=== PATIENT | female | born 1995 | race Caucasian/White ===

== ENCOUNTER 2017-12-20 20:48 | Emergency (ER) | payer OTHER ==
[2017-12-20 21:05] VITALS: BP 126/75; PULSE 83; RESP 18; TEMP 98.7; O2SAT 100
[2017-12-20] MEDS ORDERED: Dextrose 5%/Lactated Ringer's 1,000 ML IV SCH (21:15)
--- NOTE | 2017-12-20 21:52 | ED PDOC ---
Syncope/Near Syncope/Dizziness Time Seen by Provider: 12/20/17 21:06 Chief Complaint (Nursing): Dizziness/Lightheaded Chief Complaint (Provider): Dizziness/Lightheaded History Per: Patient History/Exam Limitations: no limitations Onset/Duration Of Symptoms: Intermittent Episodes Additional Complaint(s): 22 year old female, approximately 20 weeks , presents to the ER complaining that she feels dizzy/lightheaded associated with palpitations intermittently. Patient reports episodes have been happening with increased frequency during her . States it worsens after meals. No vomiting, syncope, abdominal pain, vaginal bleeding or discharge. Patient states everything else regarding her has been normal. PMD: Dr. Franky Palencia Past Medical History Reviewed: Historical Data, Nursing Documentation, Vital Signs Vital Signs: Last Vital Signs Temp 98.7 F 12/20/17 21:01 Pulse 83 12/20/17 21:01 Resp 18 12/20/17 21:01 BP 126/75 12/20/17 21:01 Pulse Ox 100 12/20/17 21:01 - Family History Family History: States: Unknown Family Hx - Allergies Allergies/Adverse Reactions: Allergies Allergy/AdvReac Type Severity Reaction Status Date / Time No Known Allergies Allergy Verified 12/20/17 21:04 Review of Systems ROS Statement: Except As Marked, All Systems Reviewed And Found Negative Cardiovascular: Positive for: Palpitations, Light Headedness Gastrointestinal: Negative for: Vomiting, Abdominal Pain Genitourinary Female: Negative for: Vaginal Discharge, Vaginal Bleeding Neurological: Positive for: Dizziness. Negative for: Other (syncope) Physical Exam - Reviewed Nursing Documentation Reviewed: Yes Vital Signs Reviewed: Yes - Physical Exam Appears: Positive for: Non-toxic, No Acute Distress Head Exam: Positive for: ATRAUMATIC, NORMOCEPHALIC Skin: Positive for: Normal Color, Warm, Dry Eye Exam: Positive for: EOMI, Normal appearance, PERRL Neck: Positive for: Normal, Painless ROM, Supple Cardiovascular/Chest: Positive for: Regular Rate, Rhythm. Negative for: Murmur Respiratory: Positive for: Normal Breath Sounds. Negative for: Accessory Muscle Use, Respiratory Distress Gastrointestinal/Abdominal: Positive for: Soft. Negative for: Tenderness Pelvic Exam: Positive for: Other (Gravid uterus) Extremity: Positive for: Normal ROM. Negative for: Deformity Neurologic/Psych: Positive for: Alert, jig worker II-XII (intact), Oriented (x 3), Cerebellar Tests (normal), Gait (steady). Negative for: Motor/Sensory Deficits - Laboratory Results Result Diagrams: 12/20/17 21:48 12/20/17 21:48 - ECG O2 Sat by Pulse Oximetry: 100 (RA) Pulse Ox Interpretation: Normal Medical Decision Making Medical Decision Making: Impression: Dehydration in Time: 21:11 Initial Plan: --EKG --BMP --CBC --Accucheck --Dextrose 5% IV 1000 ml at 500 mls/hr --Reevaluation Time: 2350 Patient reports feeling much better. Labs reviewed and show no clinically significant abnormalities. Patient stable for discharge home. Scribe Attestation: Documented by Vandana Carrillo, acting as a scribe for Jose Conde MD Provider Scribe Attestation: All medical record entries made by the Scribe were at my direction and personally dictated by me. I have reviewed the chart and agree that the record accurately reflects my personal performance of the history, physical exam, medical decision making, and the department course for this patient. I have also personally directed, reviewed, and agree with the discharge instructions and disposition Disposition - Clinical Impression Clinical Impression: Dizziness - Disposition [facility]] Franky Palencia MD [Family Provider] - Disposition Time: 23:50 Condition: IMPROVED Instructions: Dizziness (ED) Forms: [employer] (Faroese)
[2017-12-20 21:57] LABS: HEMOGLOBIN 10.6 g/dL (12.0-16.0); MEAN CELL VOLUME 85.2 fl (81.0-99.0); MEAN CORPUSCULAR HEMOGLOBIN 27.9 pg (27.0-31.0); MEAN CORPUSCULAR HGB CONC 32.7 g/dL (33.0-37.0); RBC 3.8 Mil/uL (3.80-5.20); RED CELL DISTRIBUTION WIDTH 14.5 % (11.5-14.5); WHITE BLOOD COUNT 11.4 K/uL (4.8-10.8)
[2017-12-20 23:43] LABS: BLOOD UREA NITROGEN 6 mg/dl (7-17); CALCIUM 9.3 mg/dL (8.4-10.2); GFR AFRICAN-AMERICAN > 60; GFR NON-AFRICAN AMERICAN > 60
--- NOTE | 2017-12-21 17:18 | CARD ---
APPROVED REPORT EKG Measurement Heart [id number] <Conclusion> Normal sinus rhythm Normal ECG
== END 2017-12-21 00:30 | disposition home or self-care (01) ==
LOC: H.ER 20:48
DX: R42 Dizziness and giddiness (principal); R00.2 Palpitations; E86.0 Dehydration; Z33.1 Pregnant state, incidental
CPT/HCPCS: 80048; 85027; 93005; 99284; J7120

== ENCOUNTER 2018-05-10 12:18 | Inpatient (IN) | payer OTHER ==
[2018-05-10 12:34] VITALS: BMI 46.0
--- NOTE | 2018-05-10 13:55 | OBHP ---
Datetime: 05/10/2018 12:45 IP Adm Impression: Term, intrauterine ; No Active Labor; Ruptured Membranes IP Admit Plan: Admit to unit; Initiate labor protocol Admit Comment, IP Provider: 22 y/o F at 40.4 weeks GA with ALISHA 05/06/18 by 1st trim US, complains of LOF that occured at 2 am and 1 hour ago. Pt described feeling a gush of fluid between legs, clear in color and significant amount. CTX's also began this morning, 5/10 intensity and now occuring ever y 5 minutes. No vaginal bleeding. FM present. All systems reviewed and negative except as above. NKDA PN Care: w/ Dr medina at [facility]. PN Labs: GBS neg, HIV neg, Rubella immune, blood group O pos, Antibody neg, HBsAg neg. OBHx: , TOP x2. PMHx: asthma PSHx: denied SHx: No tobacoo, EtOH or rec drugs. A/P: 22 y/o F with IUP at 40.4 weeks GA, with SROM, in labor. -Admit to L and D unit. -Initiate Labor protocol. Case discussed with Dr Lucero, OB hospitalist salesperson art objects. OB Hospitalist on-call: With PGY1, I saw and exained this patient. chart rev'd (obese/as thma) Early labor, pain management, augmentation methods/meds, delivety and postpartumc are discussed ...will admit and observe labor progress. She states baby was 7lb 2w ago by sono. EDISONolesharyn PGY-1. Pelvic Type - PN: Adequate Extremities - PN: Normal Lungs - PN: Normal Heart - PN: Normal Thyroid - PN: Normal HEENT - PN: Normal General - PN: Normal Presentation-Admit: Vertex FHR - Baseline A Provider: 140 Membranes, Provider: Ruptured Contraction Comments Provider: occ Pool Provider: Positive IP Hx Assessment: The History has been Reviewed and is Current EGA AdmitDate IP: 40.4 Vital Signs Provider: Reviewed IP Chief Complaint: Uterine contractions; Suspected ruptured membranes NICHD Variability Prov Fetus A: Moderate 6-25bpm NICHD Accel Fetus A IP Provider: 15X15 FHR Category Provider Fetus A: Category I Dilatation, Provider: 3 Effacement, Provider: 50 Station, Provider: high Genitourinary Exam: Normal
[2018-05-10 14:13] LABS: BASO % 0.2 % (0.0-2.0); EOS # 0.1 K/uL (0.0-0.7); EOS % 0.7 % (0.0-4.0); HEMOGLOBIN 10.5 g/dL (12.0-16.0); LYMPH # 1.3 K/uL (1.0-4.3); LYMPH % 10.4 % (20.0-40.0); MEAN CELL VOLUME 77.7 fl (81.0-99.0); MEAN CORPUSCULAR HEMOGLOBIN 25.2 pg (27.0-31.0); MEAN CORPUSCULAR HGB CONC 32.4 g/dL (33.0-37.0); MEAN PLATELET VOLUME 8.5 fl (7.2-11.7); MONO # 0.7 K/uL (0.0-0.8); MONO % 5.4 % (0.0-10.0); NEUT # 10.8 K/uL (1.8-7.0); NEUT % 83.3 % (50.0-75.0); NRBC % 0.1 % (0.0-0.0); RBC 4.16 Mil/uL (3.80-5.20); RED CELL DISTRIBUTION WIDTH 18.2 % (11.5-14.5); WHITE BLOOD COUNT 12.9 K/uL (4.8-10.8)
[2018-05-10] MEDS ORDERED: Oxytocin 30 units/LR 500ML 30 U/500 ML BAG IV ONE (21:53)
--- NOTE | 2018-05-11 01:41 | OBPN ---
Datetime: 05/11/2018 01:30 IP Progress Impression: Reassuring heart rate IP Informed Consent Obtain: Vaginal Delivery; Risks, Benefits and Alternatives Discussed IP Progress Plan: Augmentation; Anticipate Vaginal Delivery Membranes, Provider: Ruptured Contraction Comments Provider: occ FHR - Baseline A Provider: 140 Presentation-Admit: Vertex IP Progress Note Comment: She still feels more CTX pain. Pitocin at 1miu/h. She doesn't want pain m eds (discussed IV sedaton and eipdural). She wants to use birthing ball NICHD Accel Fetus A IP Provider: 15X15 FHR Category Provider Fetus A: Category I NICHD Variability Prov Fetus A: Moderate 6-25bpm Dilatation, Provider: 4 Effacement, Provider: 90 Station, Provider: -1 NICHD Decel Fetus A IP Provider: None Datetime: 05/10/2018 12:45 Pool Provider: Positive Vital Signs Provider: Reviewed
[2018-05-11] MEDS ORDERED: Nalbuphine 20 mg/ml Inj (1 ml) IVP PRN (04:18)
[2018-05-11] MEDS ORDERED: Nalbuphine 20 mg/ml Inj (10 ml) IVP PRN (04:45)
--- NOTE | 2018-05-11 08:48 | OBPN ---
Datetime: 05/11/2018 08:42 IP Progress Impression: Normal progression of labor IP Procedures: Sterile Vag Exam IP Progress Plan: Continue present management Membranes, Provider: Ruptured Amniotic Fluid Color, Provider: Meconium, Light Contraction Comments Provider: Q2-4 FHR - Baseline A Provider: 140's IP Progress Note Comment: 22 yo at 40+5 wks w/ SROM in labor, on pitocin GBS negative, FHT reassuring Continue current management Vital Signs Provider: Reviewed NICHD Accel Fetus A IP Provider: 15X15 FHR Category Provider Fetus A: Category I NICHD Variability Prov Fetus A: Moderate 6-25bpm Dilatation, Provider: 6 Effacement, Provider: 100 Station, Provider: -2 NICHD Decel Fetus A IP Provider: None
[2018-05-11] MEDS ORDERED: Lactated Ringer's 1,000 ML IV SCH (09:45)
[2018-05-11] MEDS ORDERED: Lidocaine 2% Inj (20ml) ONE (10:15)
[2018-05-11] MEDS: Lactated Ringer's 1,000 ML IV SCH ×2 (11:20→12:20)
[2018-05-11] MEDS ORDERED: Fentanyl/Bupivacaine HCl 250 ML EPI ONE (11:46)
[2018-05-11] MEDS ORDERED: ceFAZolin IV 2 gm in Dextrose 2 GM/50 ML BAG IVPB ONE (15:57)
[2018-05-11] MEDS ORDERED: Bupivacaine HCl 0.5% PF (30 ml) Inj ONE (16:57)
[2018-05-11] MEDS ORDERED: Lidocaine 2% PF (10 ml) Amp ONE (16:57)
[2018-05-11] MEDS ORDERED: Phenylephrine 10 mg/ml Inj ONE (17:05)
[2018-05-11] MEDS ORDERED: Morphine 1 mg/ml preservative-free Inj(Duramorph) ONE (18:18)
[2018-05-11] MEDS ORDERED: Oxycodone/Acetaminophen 5/325 mg Tab PO PRN ×2 (19:09→21:03)
--- NOTE | 2018-05-11 19:27 | OBDS ---
DELIVERY PERSONNEL Nurse Applied Exercise Physiologist Certified: N/A Delivery Doctor: Sammie Martinez MD Scrub Nurse: Sukumar Pak operations engineer Playground Attendant: Franky Hill RN/ Franky Springer RN/ Rylee Farias RN Anesthesiologist: Flora Collins MD Personal Fitness Manager: N/A Resident: Dr Cuellar MATERNAL INFORMATION Delivery Anesthesia: Epidural Medications in Delivery: Pitocin Estimated Blood Loss (ml): 800 Placenta Cultured: No Maternal Complications: None Provider Comments: Pre-op dx: 22 yo at 40+5 wks w/ arrest of dilation at 5-6 cm Post-op dx: Same Procedure: Primary low transverse section Surgeon: Michelle Kst Operator: Dr. Shepherd Anesthesiologist: Dr. Collins Anesthesia: Epidural Findings: Viable male infant delivered through thin meconium at 1803. Apgars 9 and 9. Wt. 4310 g ms, 9#8. Nl appearing uterus, tubes and ovaries. EBL: 800 mL Complications: None LABOR SUMMARY EDC: 05/06/2018 00:00 No. Babies in Womb: 1 Attempted: No Labor Anesthesia: Epidural LABOR INFORMATION Reason for Induction: Not Applicable Reason for Induction Other: N/A Onset of Labor: 05/10/2018 03:30 Oxytocin: Augmentation Group B Beta Strep: Negative Antibiotics # of Doses: N/A Antibiotics Time of Last Dose: N/A Steroids Given: None Reason Steroids Not Administered: Not Applicable Other Reason Not Administered: N/A MEMBRANES Membranes Rupture Method: Spontaneous Rupture of Membranes: 05/10/2018 02:00 Length of Rupture (hrs): 40.05 Amniotic Fluid Color: Light Meconium Amniotic Fluid Amount: Small Amniotic Fluid Odor: Normal STAGES OF LABOR Stage 3 hrs: 0 Stage 3 min: 1 Total Time in Labor hrs: 38 Total Time in Labor min: 34 CSECTION DELIVERY Primary Indication: Arrest of dilatation CSection Urgency: Non Elective CSection Incidence: Primary Labor: Labor CSection Incision: Lower Uterine Transverse CSection Incision Other: N/A BABY A INFORMATION Infant Delivery Date/Time: 05/11/2018 18:03 Method of Delivery: Born in Route : No : N/A Forceps: N/A Vacuum Extraction: N/A Shoulder Dystocia : No SHOULDER DYSTOCIA BABY A Infant Delivery Date/Time: 05/11/2018 18:03 PRESENTATION/POSITION BABY A Presentation: Cephalic Cephalic Presentation: Vertex Breech Presentation: N/A PLACENTA INFORMATION BABY A Placenta Delivery Time : 05/11/2018 18:04 Placenta Method of Delivery: Manual Removal Placenta Status: Delivered SCORES BABY A Heart Rate 1 min: >100 bpm Resp Effort 1 min: Good Cry Reflex Irritability 1 min: Cough or Sneeze or Pulls Away Muscle Tone 1 min: Active Motion Color 1 min: Body [place], Extremities Blue Resuscitation Effort 1 min: Tactile Stimulation SCORE 1 MIN: 9 Heart Rate 5 min: >100 bpm Resp Effort 5 min: Good Cry Reflex Irritability 5 min: Cough or Sneeze or Pulls Away Muscle Tone 5 min: Active Motion Color 5 min: Body [place], Extremities Blue Resuscitation Effort 5 min: N/A SCORE 5 MIN: 9 INFORMATION BABY A Gestational Age at Delivery: 40.5 Gestational Status: Term Outcome : Liveborn Condition : Stable Infant Sex: Male IDENTIFICATION/MEDS BABY A ID Band Number: [id number] ID Band Location: Left Leg; Left Arm Vitamin K Given : Not Given Erythromycin Given: Not Given WEIGHT/LENGTH BABY A Infant Birthweight (gms): 4310 Weight (lb): 9 Infant Weight (oz): 8 Infant Length Inches: 22.00 Length cms: 55.9 CORD INFORMATION BABY A No. Cord Vessels: 3 Nuchal Cord : N/A Nuchal Cord Other: N/A True Knot: 0 Cord pH Baby Arterial: N/A Infant Cord pH Baby Venous: N/A Cord Blood Taken: Yes Banking/Donate Info: N/A Suction: Mouth; Nose ASSESSMENT BABY A Infant Complications: None Physical Findings at Delivery: Within Normal Limits Infant Respirations: Appears Normal Dog Boarder/ALS Called : No Care By: Dr Terrazas,RNC Transferred To: Remains with Mother
[2018-05-11] MEDS ORDERED: Morphine 1 mg/ml preservative-free Inj(Duramorph) EPI ONE ×2 (20:55→21:03)
[2018-05-11] MEDS ORDERED: DiphenhydrAMINE 50 mg/ml Inj IVP PRN ×2 (20:55→21:03)
--- NOTE | 2018-05-12 04:21 | OP ---
PROCEDURE DATE: 05/11/2018 PREOPERATIVE DIAGNOSIS: This is a 22-year-old G3 P 0-0-2-0 at 40 weeks and 5 days with arrest of dilation at 5 to 6 cm. POSTOPERATIVE DIAGNOSIS: This is a 22-year-old G3 P 0-0-2-0 at 40 weeks and 5 days with arrest of dilation at 5 to 6 cm. PROCEDURE: Primary low-transverse section. SURGEON: Theodore Martinez MD CARDROOM WORKER: Dr. Shepherd. Dr. Shepherd was the surgical instrument repair specialist and participated in the surgery for the entire duration of the case. He helped create exposure. He also helped maintain hemostasis, operated throughout the case on the side of the patient that was across from him and assisted in the delivery of the infant by applying fundal pressure. This case could not have been completed without his assistance. ANESTHESIOLOGIST: Dr. Collins. TYPE OF ANESTHESIA: Epidural. FINDINGS: A viable male infant delivered in cephalic presentation, through thin meconium at 1803. Apgars were 9 and 9 at one and five minutes respectively. The weight was 4310 g or 9 pounds 8 ounces. Normal-appearing uterus, tubes, and ovaries. DESCRIPTION OF PROCEDURE: The patient was taken to the operating room with IV running. The epidural was bolused. She was prepped and draped in the normal sterile fashion in the dorsal supine position with a leftward tilt. A time-out was done. The epidural was tested and found to be adequate. A Pfannenstiel skin incision was then made with the scalpel and carried through to the underlying layer of fascia with the Bovie. The fascia was incised in the midline. The incision was extended laterally with the Bovie over a Jesi. The inferior aspect of the fascial incision was then grasped with Gracie clamps, elevated, and the underlying rectus muscles were dissected off bluntly with the Bovie. Attention was then turned to the superior aspect of this incision, which in a similar fashion was grasped, tented up with the Gracie clamps, and the rectus muscles dissected off bluntly with the Bovie. The rectus muscles were then in the midline; and the peritoneum was identified, tented up and entered sharply with the Metzenbaum scissors. The peritoneal incision was then extended superiorly and inferiorly with good visualization of the bladder. The bladder blade was then inserted and the vesicouterine peritoneum was identified, grasped with the pickups, and entered sharply with Metzenbaum scissors. The incision was then extended laterally and the bladder flap was created digitally. The bladder blade was then reinserted and the lower uterine segment was incised in transverse fashion with the scalpel. The uterine incision was then extended laterally, digitally. The bladder blade was removed. The 's head was delivered atraumatically. The nose and mouth were both suctioned with the bulb suction. The cord was clamped and cut, and the infant was handed off to the awaiting reed worker. Cord blood was collected. The placenta was then delivered as the uterus was massaged. The uterus was then exteriorized and cleared of all clots and debris with a dry sponge curettage. The uterine incision was then repaired with 0 Vicryl in a running locked fashion. A second layer of the same suture was used in an imbricating fashion to reinforce the incision and for hemostasis. The abdomen was irrigated. The uterus was then returned to the abdomen. The gutters were cleared of all clots. The peritoneum was closed with 2-0 chromic. A few interrupted stitches of 2-0 chromic were then used to reapproximate the rectus muscle. The fascia was reapproximated with 0 Vicryl in a running fashion. The space of the subcutaneous fat was closed with interrupted stitches of 2-0 plain gut. The skin was then closed in a subcuticular stitch with 4-0 Monocryl. The patient tolerated the procedure well. Sponge, lap, and needle counts were correct. The patient received 2 gm of Ancef prior to the procedure. The patient was taken to the recovery room in stable condition. Theodore Martinez MD DARRYL
[2018-05-12 08:15] LABS: MEAN CORPUSCULAR HEMOGLOBIN 25.8 pg (27.0-31.0); MEAN CORPUSCULAR HGB CONC 33.1 g/dL (33.0-37.0); RBC 3.22 Mil/uL (3.80-5.20); RED CELL DISTRIBUTION WIDTH 18.4 % (11.5-14.5); WHITE BLOOD COUNT 14.8 K/uL (4.8-10.8)
[2018-05-12 08:22] LABS: HEMOGLOBIN 8.3 g/dL (12.0-16.0)
--- NOTE | 2018-05-12 13:50 | OBPPN ---
Datetime: 05/12/2018 13:45 PP Pain Prov: Within normal limits PP Nausea Prov: Denies PP Flatus Prov: No PP Breasts Prov: Normal PP Heart Prov: Normal PP Lungs Prov: Normal PP Abdomen/Uterus Prov: Normal PP Lochia Prov: Normal PP Vulva/Perineum Prov: Normal PP CVA Tenderness Prov: Normal PP Extremities Prov: Normal PP C/S Incision Prov: Normal PP Progress Prov: Normal PP Impression Prov: Normal progression PP Plan Prov: Continue present management PP Progress Note Prov: She only has incisional pain. No dizziness. no SOB H/H 07/25 A: S/P C/S day 1 anemia asymptomatic PLAN: cont post op care Vital Signs Provider PP: Reviewed; Within Normal Limits
[2018-05-15 03:17] VITALS: BP 122/85; PULSE 83; RESP 20; TEMP 98.1; O2SAT 100
== END 2018-05-14 15:00 | disposition home or self-care (01) | DRG 371 ==
LOC: H.EROB2 12:18 → H.L&D 13:03 → H.OB/GYN 05-11 21:25
PROVIDERS: ADMIT Obstetrics & Gynecology; ATTEND Obstetrics & Gynecology
PROC: 4A1HXCZ Monitoring of Products of Conception, Cardiac Rate, External Approach (ICD-10-PCS; 2018-05-10)
PROC: 10D00Z1 Extraction of Products of Conception, Low, Open Approach (ICD-10-PCS; principal; 2018-05-11)
DX: O48.0 Post-term pregnancy (principal); O36.63X0 Maternal care for excessive fetal growth, third trimester, not applicable or unspecified; Z3A.40 40 weeks gestation of pregnancy; O62.0 Primary inadequate contractions; O77.0 Labor and delivery complicated by meconium in amniotic fluid; O99.214 Obesity complicating childbirth; E66.9 Obesity, unspecified; Z37.0 Single live birth; O99.513 Diseases of the respiratory system complicating pregnancy, third trimester; J45.909 Unspecified asthma, uncomplicated; Z68.42 Body mass index [BMI] 45.0-49.9, adult